=== PATIENT | male | born 1955 | race Caucasian/White ===

== ENCOUNTER 2020-09-16 12:25 | Inpatient (IN) ==
[2020-09-16 13:04] LABS: Hematocrit 41.6 % (42.0-52.0); Hemoglobin 13.9 gm/dL (13.5-18.0); Mean Cell Volume 99.5 fl (78-100); Mean Corpuscular Hemoglobin 33.3 pg (27-31); Mean Corpuscular Hgb Conc 33.4 g/dl (32-36); Mean Platelet Volume 9.9 fl (8-11.3); Neutrophil # 5.8 K/mm3 (1.3-6.0); Neutrophil % 73.4 % (42-75.0); Platelet Count 213 K/mm3 (150-450); Red Blood Count 4.18 M/mm3 (4.7-6.0); Red Cell Distribution Width 12.2 % (11.5-14.0); White Blood Count 7.9 K/mm3 (4.0-10.5)
[2020-09-16 13:23] LABS: ALT 46 U/L (19-67); AST 60 U/L (0-48); Albumin * 3.7 gm/dl (3.4-5.0); Alkaline Phosphatase * 102 U/L (50-170); Anion Gap 13.4 mmol/L (6.8-13.8); BNP * 18107 pg/mL (5-175); BUN/Creatinine Ratio 12.5 (9.0-21.6); Bilirubin, Total 1.2 mg/dL (0.0-1.1); Blood Urea Nitrogen 13 mg/dL (6-23); Ca. Corrected For Albumin 8.9 mg/dL (8.4-10.2); Carbon Dioxide 26.1 mmol/L (24-32.6); Chloride 89 mmol/L (97-106); Glucose * 137 mg/dL (70-110); Potassium 4.5 mmol/L (3.4-4.6); Sodium 124 mmol/L (132-142); Total Protein 7.9 gm/dL (6.2-8.2); Troponin I Less than 0.017 ng/mL (0.00-0.10)
[2020-09-16 13:29] LABS: Magnesium 1.7 mg/dL (1.2-2.8)
[2020-09-16] MEDS ORDERED: FUROSEMIDE 10 MG/ML VIAL IV ONE (13:35)
[2020-09-16] MEDS ORDERED: hydrALAZINE HCL 20 MG/ML VIAL IV ONE (13:49)
[2020-09-16] MEDS ORDERED: cefTRIAXone SODIUM 1,000 MG/100 ML BAG IV ONE (14:32)
--- NOTE | 2020-09-16 15:14 | ERNOTE ---
Medical Problem HPI - Narrative Date of Service: 09/16/20 - General Chief Complaint: General Assessment Time Seen by Provider: 09/16/20 13:07 Source: patient Exam Limitations: no limitations - Immun/Allergies/Home Medications Immunizations: IMMUNIZATION HX Immunizations Up to Date Yes Allergies/Adverse Reactions: Allergies No Known Allergies Allergy (Unverified 09/01/17 20:55) Home Medications: HOME MEDICATIONS NK 09/16/20 [Last Taken Unknown] - History of Present History Narrative: Patient presents to the ED for legs and arms swelling. HE feels fatigued and generally weak. He has been having these Sx for some time but significantly worse over the last couple of days. No CP. Cough noted. No abdominal pain. Has not seen anyone else for this. Timing: constant, getting worse Severity: moderate Modifying Factors - (Improves): Present: other - nothing Modifying Factors - (Worsens): Present: other - nothing Review of Systems - Review of Systems Constitutional: Absent: fever EYE: Present: no symptoms reported ENT: Absent: sore throat Respiratory: Present: See HPI Cardiology: Absent: chest pain Gastrointestinal/Abdominal: Absent: abdominal pain Skin: Absent: lesions Neurological: Present: See HPI. Absent: headache All Other Systems: All systems neg except as marked Medical History (Last Reviewed 09/16/20 @ 15:11 by Sulaiman Askew MD) No pertinent past medical history Surgical History: Surgical History (Last Reviewed 09/16/20 @ 15:11 by Sulaiman Askew MD) No pertinent past surgical history Family History: Family History (Last Reviewed 09/16/20 @ 15:11 by Sulaiman Askew MD) Father CHF (congestive heart failure) Sister CHF (congestive heart failure) Social History: (Last Reviewed 09/16/20 @ 15:11 by Sulaiman Askew MD) Tobacco: Smoking Status: Current every day smoker Smoking packs per day: 20 Alcohol: Alcohol type: beer alcohol intake frequency: 3 or more drinks per day Substance Use: substance use type: does not use Physical Exam - Physical Exam General Appearance: Present: alert, no apparent distress Head Exam: Present: normal inspection, no evidence of injury Eye Exam: Normal inspection: bilateral, PERRL: bilateral Ears, Nose, Throat: Present: normal ENT inspection Neck: Present: normal inspection Respiratory: Present: no respiratory distress, crackles, other. Absent: respiratory distress Cardiovascular/Chest: Present: normal peripheral pulses, tachycardia Gastrointestinal/Abdominal: Present: normal bowel sounds, nontender, soft Back Exam: Absent: CVA tenderness (R), CVA tenderness (L) Extremity Exam: Present: extremity edema Neurological Exam: Present: alert, no motor/sensory deficits Skin Exam: Present: normal color, warm/dry Progress - Results and Orders Patient's Lab Results:: I have reviewed the patient's lab results. - Vital Signs Patient's Vital Signs:: I have reviewed the patient's vital signs. Vital Signs: Vital Signs 09/16/20 12:39 09/16/20 13:43 09/16/20 13:49 Temperature 36.5 C Pulse Rate 111 H 108 H 108 H Respiratory Rate 15 20 Blood Pressure 180/103 H 171/118 H 169/111 H O2 Sat by Pulse Oximetry 100 100 09/16/20 13:53 09/16/20 13:56 Temperature Pulse Rate 106 H 106 H Respiratory Rate 12 Blood Pressure 169/115 H 172/114 H O2 Sat by Pulse Oximetry 100 - EKG EKG #1 EKG read: Interp. by tn EKG Comments: Sinus tachycardia rate 107. Non-specific ST/T wave changes, no STEMI - X-Ray X-Ray #1 X-Ray: chest Interpretation: Interp. by me X-ray Comments: I personally reviewed CXR images as well as official radiology report, - CT/Ultrasound CT/Ultrasound Narrative: I reviewed official radiology report for CT chest. - Progress/Reassessment Chief Complaint: General Assessment Progress Note-Subjective: 09/16/20 16:05 Patient given IV lasix. Over 1L diuresis. New onset CHF. Hyponatremia. IV Hydralazine given for significant HTN. D/W Case management, full admission indicated. I spoke with Dr Mendoza who will admit. Patient is agreeable. Departure Clinical Impression: New onset of congestive heart failure, Hyponatremia, Elevated lactic acid level - Departure Disposition: Still a patient Condition: Fair
--- NOTE | 2020-09-16 22:49 | HP ---
Chief Complaint - Chief Complaint Date of Service: 09/16/20 Time of Service: 22:00 Chief Complaint: Lower extremity swelling History of Present Illness: Tim is a 65 yo male that presented to the [facility] ER for lower extremity. He denies shortness of breath, chest pain, or excessive salt intake. He reports drinking about 4 beers a day, although he used to drink more. In the ER he was given Lasix IV 40mg. Sodium was 124. Medical History (Last Reviewed 09/16/20 @ 17:25 by Sherrie Britton RN) No pertinent past medical history Surgical History: Surgical History (Last Reviewed 09/16/20 @ 17:25 by Sherrie Britton RN) No pertinent past surgical history Family History: Family History (Last Reviewed 09/16/20 @ 17:25 by Sherrie Britton RN) Father CHF (congestive heart failure) Sister CHF (congestive heart failure) Social History: (Last Reviewed 09/16/20 @ 17:25 by Sherrie Britton RN) Tobacco: Smoking Status: Current every day smoker Smoking packs per day: 20 Alcohol: Alcohol type: beer alcohol intake frequency: 3 or more drinks per day Substance Use: substance use type: does not use Review Of Systems (GEN) - Review of Systems Generalized/Overall Review: Present: Weakness. Absent: Chills, Fever EENTM: Present: No Symptoms Reported Respiratory: Absent: Cough, Shortness of Breath Cardiac: Present: Edema. Absent: Chest Pain Abdominal: Absent: Nausea, Vomiting Genitourinary: Present: No Symptoms Reported Musculoskeletal: Present: No Symptoms Reported Neurological: Present: No Symptoms Reported Skin: Present: No Symptoms Reported Immunizations: IMMUNIZATION HX Immunizations Up to Date Yes Allergies/Adverse Reactions: Allergies Allergy/AdvReac Type Severity Reaction Status Date / Time No Known Allergies Allergy Verified 09/16/20 17:25 Home Medications: HOME MEDICATIONS NK 09/16/20 [Last Taken Unknown] Exam - Exam Vital Signs: Vital Signs - Last Taken Temp 36.8 C 09/16/20 19:15 Pulse 118 H 09/16/20 19:15 Resp 22 H 09/16/20 19:15 BP 149/85 09/16/20 19:15 Pulse Ox 98 09/16/20 19:15 Constitutional: Present: Alert, Oriented x3, Cooperative ENT Exam: Present: hearing grossly normal Eye Exam: bilateral eye: normal inspection Respiratory: Present: lungs clear, normal breath sounds, no respiratory distress Cardiovascular/Chest: Present: regular rate, rhythm, no murmur, edema Peripheral Pulses: radial (R): 2+, radial (L): 2+ Abdomen: Present: Normal bowel sounds, soft, nontender, nondistended Extremity: Present: lower extremity edema - 3+ Skin Exam: Present: normal color, warm/dry, no cyanosis Neurologic: Present: alert, normal mood/affect, oriented x 3 Appearance: Present: appropriate appearance, appropriate insight Eye contact: Present: cooperative, good eye contact, normal speech Thoughts: Present: normal thought pattern, no apparent hallucination Diagnostic Studies: Abnormal Lab Results 09/16/20 09/16/20 09/16/20 Range/Units 12:55 12:55 12:55 RBC 4.18 L (4.7-6.0) M/mm3 Hct 41.6 L (42.0-52.0) % MCH 33.3 H (27-31) pg Immature Gran % (Auto) 0.50 H (0.001-0.429) % Immature Gran # (Auto) 0.04 H (0.000-0.0310) K/mm3 Lymphocytes % 11.9 L (20-51) % Monocytes % 13.7 H (0.0-9) % Lymphocytes # 0.94 L (1.5-3.5) k/mm3 Monocytes # 1.1 H (0.0-1.0) k/mm3 D-Dimer (0.19-0.49) ug/mL Sodium 124 L (132-142) mmol/L Plasma Sodium 125 L (130-142) mmol/L Chloride 89 L (97-106) mmol/L Random Glucose 137 H (70-110) mg/dL Lactic Acid, Venous 3.8 H* (0.4-2.0) mmol/L Total Bilirubin 1.2 H (0.0-1.1) mg/dL AST 60 H (0-48) U/L B-Natriuretic Peptide 24439 H (5-175) pg/mL 09/16/20 09/16/20 09/16/20 Range/Units 12:55 16:35 22:15 RBC (4.7-6.0) M/mm3 Hct (42.0-52.0) % MCH (27-31) pg Immature Gran % (Auto) (0.001-0.429) % Immature Gran # (Auto) (0.000-0.0310) K/mm3 Lymphocytes % (20-51) % Monocytes % (0.0-9) % Lymphocytes # (1.5-3.5) k/mm3 Monocytes # (0.0-1.0) k/mm3 D-Dimer 2.30 H (0.19-0.49) ug/mL Sodium 129 L (132-142) mmol/L Plasma Sodium (130-142) mmol/L Chloride (97-106) mmol/L Random Glucose (70-110) mg/dL Lactic Acid, Venous 3.7 H* (0.4-2.0) mmol/L Total Bilirubin (0.0-1.1) mg/dL AST (0-48) U/L B-Natriuretic Peptide (5-175) pg/mL Laboratory Results WBC 7.9 K/mm3 (4.0-10.5) 09/16/20 12:55 RBC 4.18 M/mm3 (4.7-6.0) L 09/16/20 12:55 Hgb 13.9 gm/dL (13.5-18.0) 09/16/20 12:55 Hct 41.6 % (42.0-52.0) L 09/16/20 12:55 MCV 99.5 fl (78-100) 09/16/20 12:55 MCH 33.3 pg (27-31) H 09/16/20 12:55 MCHC 33.4 g/dl (32-36) 09/16/20 12:55 RDW 12.2 % (11.5-14.0) 09/16/20 12:55 Plt Count 213 K/mm3 (150-450) 09/16/20 12:55 MPV 9.9 fl (8-11.3) 09/16/20 12:55 Immature Gran % (Auto) 0.50 % (0.001-0.429) H 09/16/20 12:55 Immature Gran # (Auto) 0.04 K/mm3 (0.000-0.0310) H 09/16/20 12:55 Neutrophils % 73.4 % (42-75.0) 09/16/20 12:55 Lymphocytes % 11.9 % (20-51) L 09/16/20 12:55 Monocytes % 13.7 % (0.0-9) H 09/16/20 12:55 Eosinophils % 0.1 % (0.0-3.0) 09/16/20 12:55 Basophils % 0.4 % (0.0-1.0) 09/16/20 12:55 Nucleated RBC % 0.0 k/mm3 (0-1) 09/16/20 12:55 Neutrophils # 5.8 K/mm3 (1.3-6.0) 09/16/20 12:55 Lymphocytes # 0.94 k/mm3 (1.5-3.5) L 09/16/20 12:55 Monocytes # 1.1 k/mm3 (0.0-1.0) H 09/16/20 12:55 Eosinophils # 0.0 k/mm3 (0.0-0.7) 09/16/20 12:55 Absolute Basophils 0.0 k/mm3 (0.0-0.1) 09/16/20 12:55 D-Dimer 2.30 ug/mL (0.19-0.49) H 09/16/20 12:55 Sodium 129 mmol/L (132-142) L 09/16/20 22:15 Plasma Sodium 125 mmol/L (130-142) L 09/16/20 12:55 Potassium 4.5 mmol/L (3.4-4.6) 09/16/20 12:55 Chloride 89 mmol/L (97-106) L 09/16/20 12:55 Carbon Dioxide 26.1 mmol/L (24-32.6) 09/16/20 12:55 Anion Gap 13.4 mmol/L (6.8-13.8) 09/16/20 12:55 BUN 13 mg/dL (6-23) 09/16/20 12:55 Creatinine 1.04 mg/dL (0.4-1.4) 09/16/20 12:55 Est GFR (Non-Af Amer) 77 mL/min (60-130) D 09/16/20 12:55 BUN/Creatinine Ratio 12.5 (9.0-21.6) 09/16/20 12:55 Random Glucose 137 mg/dL (70-110) H 09/16/20 12:55 Lactic Acid, Venous 3.7 mmol/L (0.4-2.0) H* 09/16/20 16:35 Calcium 9.0 mg/dL (7.9-10.9) 09/16/20 12:55 Calcium Adj for Albumin 8.9 mg/dL (8.4-10.2) 09/16/20 12:55 Magnesium 1.7 mg/dL (1.2-2.8) 09/16/20 12:55 Total Bilirubin 1.2 mg/dL (0.0-1.1) H 09/16/20 12:55 AST 60 U/L (0-48) H 09/16/20 12:55 ALT 46 U/L (19-67) 09/16/20 12:55 Alkaline Phosphatase 102 U/L (50-170) 09/16/20 12:55 Troponin I Less than 0.017 ng/mL (0.00-0.10) 09/16/20 12:55 B-Natriuretic Peptide 74940 pg/mL (5-175) H 09/16/20 12:55 Total Protein 7.9 gm/dL (6.2-8.2) 09/16/20 12:55 Albumin 3.7 gm/dl (3.4-5.0) 09/16/20 12:55 Ethyl Alcohol Less than 3.0 mg/dL (0.0-10.0) 09/16/20 12:55 SARS-CoV-2 (PCR) Not detected (NotDetected) 09/16/20 15:38 Assessment/Plan - Narrative Narrative: Tim is a 65 yo male with hypervolumic hyponatremia. Will treat with diuresis and monitor sodium. Significant lower extremity edema present. No respiratory symptoms present. Anticipate 2 midnights to correct sodium will admit to inpatient status. - Assessment/Plan (1) Hyponatremia Problem: Acute
[2020-09-17 06:07] LABS: Albumin * 2.6 gm/dl (3.4-5.0); Anion Gap 9.4 mmol/L (6.8-13.8); BUN/Creatinine Ratio 16.4 (9.0-21.6); Bilirubin, Total 0.8 mg/dL (0.0-1.1); Ca. Corrected For Albumin 9.1 mg/dL (8.4-10.2); Calcium * 8.3 mg/dL (7.9-10.9); Carbon Dioxide 29.1 mmol/L (24-32.6); Potassium 3.5 mmol/L (3.4-4.6); Total Protein 5.9 gm/dL (6.2-8.2)
[2020-09-17] MEDS ORDERED: FUROSEMIDE 10 MG/ML VIAL IV ONE (08:39)
[2020-09-17] MEDS ORDERED: LORazepam 2 MG/ML DISP.SYRIN IV PRN ×3 (20:13)
[2020-09-17] MEDS: LORazepam 1 MG TABLET PO SCH (20:45)
--- NOTE | 2020-09-17 22:34 | PN ---
Subjective - Date and Time Seen Date: 09/17/20 Time: 09:00 Subjective Narrative: Tim reports feeling better today. Sodium improved from 124 to 129. Legs still swollen but improved. Objective - Vitals Vitals: Last Vital Signs Temp 37.4 C 09/17/20 19:26 Pulse 106 H 09/17/20 19:26 Resp 16 09/17/20 19:26 BP 155/94 H 09/17/20 19:26 Pulse Ox 96 09/17/20 19:26 - Abnormal Lab Findings Abnormal Lab Findings: Abnormal Lab Results 09/16/20 09/17/20 Range/Units 22:15 05:30 Sodium 129 L 129 L (132-142) mmol/L Plasma Sodium 129 L (130-142) mmol/L Chloride 94 L (97-106) mmol/L Random Glucose 115 H (70-110) mg/dL Total Protein 5.9 L (6.2-8.2) gm/dL Albumin 2.6 L (3.4-5.0) gm/dl - Exam Constitutional: Present: Alert, Oriented x3, Cooperative Respiratory: Present: lungs clear, normal breath sounds Cardiovascular/Chest: Present: regular rate, rhythm, no murmur, edema Abdomen: Present: Normal bowel sounds, soft, nontender, nondistended Extremity: Present: lower extremity edema - 2+ Skin Exam: Present: normal color, warm/dry, no cyanosis Neurologic: Present: alert, normal mood/affect, oriented x 3 Appearance: Present: appropriate appearance, appropriate insight Eye contact: Present: cooperative, good eye contact, normal speech Assessment/Plan Plan Narrative: Sodium improved but still low. Will continue diuresis and monitor sodium. - Problems/Diagnosis (1) Hyponatremia Problem: Acute
[2020-09-18] MEDS: LORazepam 1 MG TABLET PO SCH ×2 (02:58→08:31)
[2020-09-18] MEDS ORDERED: FUROSEMIDE 10 MG/ML VIAL IV ONE ×2 (03:16→09:53)
[2020-09-18] MEDS ORDERED: FUROSEMIDE 10 MG/ML VIAL ONE (03:23)
[2020-09-18 10:12] LABS: Hematocrit 35.9 % (42.0-52.0); Hemoglobin 11.9 gm/dL (13.5-18.0); Mean Corpuscular Hemoglobin 33.1 pg (27-31); Mean Corpuscular Hgb Conc 33.1 g/dl (32-36); Mean Platelet Volume 9.7 fl (8-11.3); Neutrophil # 4.3 K/mm3 (1.3-6.0); Neutrophil % 68.2 % (42-75.0); Platelet Count 170 K/mm3 (150-450); Red Blood Count 3.59 M/mm3 (4.7-6.0); Red Cell Distribution Width 12.4 % (11.5-14.0); White Blood Count 6.4 K/mm3 (4.0-10.5)
[2020-09-18] MEDS: METOPROLOL SUCCINATE 50 MG TABLET.SA PO SCH (10:25)
[2020-09-18 10:32] LABS: BUN/Creatinine Ratio 15.1 (9.0-21.6); Bilirubin, Total 0.7 mg/dL (0.0-1.1); Ca. Corrected For Albumin 9.1 mg/dL (8.4-10.2); Calcium * 8.6 mg/dL (7.9-10.9); Total Protein 6.6 gm/dL (6.2-8.2)
[2020-09-18] MEDS ORDERED: POTASSIUM CHLORIDE 20 MEQ TABLET.SA PO ONE (11:08)
[2020-09-18] MEDS ORDERED: traMADol HCL 50 MG TABLET PO PRN (18:29)
--- NOTE | 2020-09-18 23:00 | PN ---
Subjective - Date and Time Seen Date: 09/18/20 Time: 10:00 Subjective Narrative: Tim is somnolent this morning. He awakens to verbal but falls asleep easily. No concerns while awake. Later today he reported left hip pain. Overnight night he had tried getting up to the bathroom and had fallen. No fever, chills, nausea, or vomiting. Objective - Vitals Vitals: Last Vital Signs Temp 36.5 C 09/18/20 22:05 Pulse 98 09/18/20 22:05 Resp 16 09/18/20 22:05 BP 141/90 H 09/18/20 22:05 Pulse Ox 94 09/18/20 22:05 - Abnormal Lab Findings Abnormal Lab Findings: Abnormal Lab Results 09/18/20 09/18/20 Range/Units 10:06 10:06 RBC 3.59 L (4.7-6.0) M/mm3 Hgb 11.9 L (13.5-18.0) gm/dL Hct 35.9 L (42.0-52.0) % MCH 33.1 H (27-31) pg Immature Gran % (Auto) 0.50 H (0.001-0.429) % Lymphocytes % 12.4 L (20-51) % Monocytes % 17.1 H (0.0-9) % Lymphocytes # 0.79 L (1.5-3.5) k/mm3 Monocytes # 1.1 H (0.0-1.0) k/mm3 Potassium 3.0 L (3.4-4.6) mmol/L Chloride 94 L (97-106) mmol/L Carbon Dioxide 36.0 H (24-32.6) mmol/L Random Glucose 119 H (70-110) mg/dL Albumin 3.0 L (3.4-5.0) gm/dl - Exam Constitutional: Present: Oriented x3, Cooperative, Somnolent ENT Exam: Present: hearing grossly normal Respiratory: Present: no respiratory distress, rhonchi Cardiovascular/Chest: Present: no murmur, tachycardia Abdomen: Present: Normal bowel sounds, soft, nontender, nondistended Skin Exam: Present: normal color, warm/dry, no cyanosis Appearance: Present: appropriate appearance, appropriate insight Assessment/Plan Plan Narrative: Hyponatremia corrected with diuresis. Tim is somnolent from ativan, given for alcohol withdrawal symptoms. Will discontinue oral ativan. Continue IV prn dose based on CIWA. Left hip xray performed due to fall and report of left hip pain later today. Possible left hip fracture on xray. Radiologist recommended CT which was done and confirms fracture. Dr. Leal notified and consulted. Tim will be NPO at midnight with plans of surgery tomorrow. He is medically cleared for surgery. - Problems/Diagnosis (1) Hyponatremia Problem: Resolved (2) Hip fracture, left Problem: Acute Qualifiers: Encounter type: initial encounter Fracture type: closed Qualified Code(s): S72.002A - Fracture of unspecified part of neck of left femur, initial encounter for closed fracture
[2020-09-19] MEDS ORDERED: traMADol HCL 50 MG TABLET PO PRN (04:08)
[2020-09-19] MEDS: METOPROLOL SUCCINATE 50 MG TABLET.SA PO SCH (08:08)
--- NOTE | 2020-09-19 10:14 | CONS ---
[facility] - General Date of Service: 09/19/20 Narrative: Mr. Whittington is a 65-year-old gentleman who was admitted to the hospital for alcoholism and hyponatremia. He was treated medically however noted left hip pain after a fall. X-rays and CT were obtained which showed a nondisplaced left intertrochanteric femur fracture. He states he lives at home with his who does most of the errands and driving but otherwise he lives independently. He denies any other areas of pain. He is somewhat somnolent secondary to his medications for his alcohol withdrawal. He does understand the injury as well as the options for treatment. Source: patient, RN/MD Exam Limitations: clinical condition - History of Present Illness Timing/Duration: 24 hours Severity: mild Modifying Factors - (Worsens): Reports: movement Modifying Factors - (Improves): Reports: immobilization Associated Symptoms: denies symptoms Allergies/Adverse Reactions: Allergies No Known Allergies Allergy (Verified 09/16/20 17:25) Home Medications: Home Medications Medication Instructions Recorded Last Taken NK 09/16/20 Unknown Medications - Medications Current Medications: Current Medications Lorazepam (Lorazepam 2 Mg/Ml Disp.Syrin) 1 mg IV Q2H PRN PRN Reason: Alcohol Withdrawal Stop: 10/17/20 20:14 Last Admin: 09/17/20 23:47 Dose: 1 mg Documented by: Metoprolol Succinate (Metoprolol Succinate 50 Mg Tablet.Sa) 50 mg PO DAILY ALMA ROSA Stop: 10/18/20 10:01 Last Admin: 09/19/20 08:08 Dose: 50 mg Documented by: Tramadol HCl (Tramadol Hcl 50 Mg Tablet) 100 mg PO Q6H PRN PRN Reason: Pain Stop: 10/18/20 18:30 Last Admin: 09/19/20 04:28 Dose: 100 mg Documented by: Review of Systems - Review of Systems Narrative: Negative except for above Physical Examination - Exam Narrative: He is alert and oriented to person and place. Left lower extremity: No ecchymosis, lacerations or abrasions about the hip, no significant deformity, thigh is soft, sensations intact light touch, he is able to flex and extend his toes and ankle, noted edema to his foot but a palpable dorsalis pedis pulse, pain with any hip range of motion Vital Signs: Vital Signs - Last Taken Temp 36.6 C 09/19/20 09:42 Pulse 88 09/19/20 09:42 Resp 16 09/19/20 09:42 BP 104/77 09/19/20 09:42 Pulse Ox 90 L 09/19/20 09:42 O2 Oxygen Delivery Method Room Air - Results and Findings: Narrative: Left hip plain films and left hip CT reviewed: Nondisplaced intertrochanteric femur fracture without any signs of other acute pelvic fractures Lab/Microbiology results last 24 hrs: Abnormal/Pending Laboratory Last 24 HRS 09/18/20 09/18/20 10:06 10:06 RBC 3.59 L Hgb 11.9 L Hct 35.9 L MCH 33.1 H Immature Gran % (Auto) 0.50 H Lymphocytes % 12.4 L Monocytes % 17.1 H Lymphocytes # 0.79 L Monocytes # 1.1 H Potassium 3.0 L Chloride 94 L Carbon Dioxide 36.0 H Random Glucose 119 H Albumin 3.0 L - Assessments/Findings (1) Fracture, intertrochanteric, left femur Diagnosis(s): We discussed his injury and options for treatment. The risks of nonoperative as well as operative treatment were reviewed. He elected proceed with surgery. Consent will be obtained. The plan is to proceed with surgery today. Problem: Acute Qualifiers: Encounter type: initial encounter Fracture type: closed Fracture alignment: nondisplaced Qualified Code(s): S72.145A - Nondisplaced intertrochanteric fracture of left femur, initial encounter for closed fracture
--- NOTE | 2020-09-19 11:12 | ANES ---
Anesthesia Pre Procedure Eval Vitals/Labs: Last Vital Signs Temp 36.6 C 09/19/20 09:42 Pulse 88 09/19/20 09:42 Resp 16 09/19/20 09:42 BP 104/77 09/19/20 09:42 Pulse Ox 90 L 09/19/20 09:42 HOME MEDICATIONS NK 09/16/20 [Last Taken Unknown] Allergies/Adverse Reactions: Allergies Allergy/AdvReac Type Severity Reaction Status Date / Time No Known Allergies Allergy Verified 09/16/20 17:25 - Planned Procedure Planned Procedure: new onset CHF, hyponatremia Medication List Reviewed:: Yes Allergies Verified: Yes Medical History (Last Reviewed 09/19/20 @ 11:11 by Brenton Saldana CRNA) No pertinent past medical history Surgical History (Last Reviewed 09/19/20 @ 11:11 by Brenton Saldana CRNA) No pertinent past surgical history Family History (Last Reviewed 09/19/20 @ 11:11 by Brenton Saldana CRNA) Father CHF (congestive heart failure) Sister CHF (congestive heart failure) - Family Anesthesia History Family History:: no untoward family reactions to anesthesia, no familial bleeding tendencies, no family history of clotting disorders, no family history of premature - Airway/Neck/Teeth Within Normal Limits:: Yes Denture Type: Full upper, Full lower Mallampatti Score: 4 Thyromental (T-M) distance: > 6 cm Mandibulo Hyoid distance: > 3 cm - Respiratory Respiratory History: COPD Respiratory Physical: rhonchi, wheezing Smoking Status: Current every day smoker - Cardiovascular Tolerate Activity: Poor Heart Sounds: S1 & S2, Regular - Gastrointestinal NPO since: mn - Anesthesia Assessment and Plan ASA Class: PS, III, E Anesthesia Type Plan: Spinal
[2020-09-19] MEDS ORDERED: ceFAZolin SODIUM 1 GM VIAL ONE (11:55)
[2020-09-19] MEDS ORDERED: ceFAZolin SODIUM 1 GM VIAL IV PRN (12:01)
[2020-09-19] MEDS ORDERED: LIDOCAINE HCL 20 ML VIAL ONE (13:46)
[2020-09-19] MEDS ORDERED: PROPOFOL VIAL IV ONE (13:46)
--- NOTE | 2020-09-19 15:09 | DS ---
Transfer Discharge Summary - Diagnosis(s)/Problems (1) Acute respiratory failure Problem: Acute (2) Hyponatremia Problem: Resolved (3) Hip fracture, left Problem: Acute - Course Description of Stay: Tim is a 65 yo male that was admitted on 09/16/20 for hyponatremia and lower extremity edema. He appeared to have a hypervolumic hyponatremia and was treated with IV lasix. Sodium improved from 124 to 136. He had a history of alcohol abuse, drinking more than 4 beer a day recently, and reportedly much more than that in the past. He was placed on CIWA protocol and given Ativan. He got up in the middle of the night and fell. He initially reported left hip pain but was monitored. On rounding the following morning he did not report any hip pain, but later in the day admitted to having some and a hip xray was completed showing possible left hip fracture. CT was performed which confirmed a fracture. He was made NPO at midnight and ortho was consulted with plans to repair fracture today (09/19/20). Other than left hip pain he was doing well and went to surgery where he had a spinal for anesthesia. During the spinal he went into cardiac arrest and CPR was started. He went through two rounds of CPR and a pulse was regained. He was intubated. Request for transfer was placed due to need for cardiology with his cardiac arrest and ultimately orthopedics as this occurred prior to his left hip fracture being repaired. Transfer of care was accepted at [facility] with Dr. Riley. Procedures Performed: see notes below Procedures: Spinal 09/19/20 - Medications Medications: Active Medications Lorazepam (Lorazepam 2 Mg/Ml Disp.Syrin) 1 mg IV Q2H PRN PRN Reason: Alcohol Withdrawal Stop: 10/17/20 20:14 Last Admin: 09/17/20 23:47 Dose: 1 mg Documented by: Metoprolol Succinate (Metoprolol Succinate 50 Mg Tablet.Sa) 50 mg PO DAILY ALMA ROSA Stop: 10/18/20 10:01 Last Admin: 09/19/20 08:08 Dose: 50 mg Documented by: Tramadol HCl (Tramadol Hcl 50 Mg Tablet) 100 mg PO Q6H PRN PRN Reason: Pain Stop: 10/18/20 18:30 Last Admin: 09/19/20 04:28 Dose: 100 mg Documented by: Discontinued Medications Furosemide (Furosemide 10 Mg/Ml Vial) 40 mg IV ONCE ONE Stop: 09/16/20 13:36 Last Admin: 09/16/20 13:43 Dose: 40 mg Documented by: Furosemide (Furosemide 10 Mg/Ml Vial) 40 mg IV ONCE ONE Stop: 09/17/20 08:40 Last Admin: 09/17/20 09:04 Dose: 40 mg Documented by: Furosemide (Furosemide 10 Mg/Ml Vial) 40 mg IV ONCE ONE Stop: 09/18/20 03:17 Last Admin: 09/18/20 03:28 Dose: 40 mg Documented by: Furosemide (Furosemide 10 Mg/Ml Vial) 40 mg IV ONCE ONE Stop: 09/18/20 09:54 Last Admin: 09/18/20 10:25 Dose: 40 mg Documented by: Hydralazine HCl (Hydralazine Hcl 20 Mg/Ml Vial) 10 mg IV ONCE ONE Stop: 09/16/20 13:50 Last Admin: 09/16/20 13:53 Dose: 10 mg Documented by: Lorazepam (Lorazepam 1 Mg Tablet) 1 mg PO Q6H ALMA ROSA Stop: 10/17/20 20:16 Last Admin: 09/18/20 08:31 Dose: Not Given Documented by: Potassium Chloride (Potassium Chloride 20 Meq Tablet.Sa) 40 meq PO ONCE ONE Stop: 09/18/20 11:09 Last Admin: 09/18/20 12:32 Dose: 40 meq Documented by: Tramadol HCl (Tramadol Hcl 50 Mg Tablet) 50 mg PO Q6H PRN PRN Reason: Pain Stop: 10/18/20 18:30 Last Admin: 09/19/20 00:32 Dose: 50 mg Documented by: - Disposition Disposition: Short Term Hospital Inpatient Condition: Poor Discharge Date: 09/19/20 Discharge Time: 15:08
[2020-09-19] MEDS: RINGER'S SOLUTION,LACTATED 1,000 ML IV PRN ×2 (15:10→15:46)
[2020-09-19] MEDS ORDERED: PROPOFOL 1,000 MG/100 ML PIGGYBACK IV PRN (16:31)
--- NOTE | 2020-09-19 16:31 | ANES ---
Post Anesthesia Discharge - Transfer of Care Transfer of Care handoff given to nurse: Yes - Discharge from PACU Discharge from PACU when meets criteria: Yes - Discharge to ASU Discharge to ASU-no complications/pt stable: Yes - Patient to SCU intubated.
--- NOTE | 2020-09-19 16:33 | ANES ---
Post Anesthesia Assessment - Vital Signs Vitals: Last Vital Signs Temp 35.9 C L 09/19/20 16:05 Pulse 82 09/19/20 16:26 Resp 15 09/19/20 16:26 BP 108/31 09/19/20 16:26 Pulse Ox 93 09/19/20 16:26 Airway Patency: Maintainable - Mental Status Level Of Consciousness: Lethargic - Pain Level Pain Score: 0 - N/V Assessment Nausea/Vomiting Presence: None Dehydration:: No - Additional Notes Comments:: Patient intubated and on mechanical ventilation. VSS at discharge.
[2020-09-19 17:15] VITALS: BP 131/96
[2020-09-20] MEDS ORDERED: ceFAZolin SODIUM 1 GM VIAL IV PRN (06:00)
[2020-09-20] MEDS ORDERED: CHLORHEXIDINE GLUCONATE 15 ML UDC MM SCH (09:00)
== END 2020-09-19 17:15 | disposition short-term general hospital (02) | DRG 640 ==
LOC: ER 12:25 → MS 17:00
PROVIDERS: ADMIT Family Medicine; ATTEND Family Medicine
DX: W18.39XA Other fall on same level, initial encounter; Z53.8 Procedure and treatment not carried out for other reasons; I10 Essential (primary) hypertension; I46.9 Cardiac arrest, cause unspecified; J96.00 Acute respiratory failure, unspecified whether with hypoxia or hypercapnia; T88.59XA Other complications of anesthesia, initial encounter; E87.1 Hypo-osmolality and hyponatremia; F10.939 Alcohol use, unspecified with withdrawal, unspecified; Y92.230 Patient room in hospital as the place of occurrence of the external cause; S72.145A Nondisplaced intertrochanteric fracture of left femur, initial encounter for closed fracture; I50.9 Heart failure, unspecified